=== PATIENT | male | born 1955 | race Two or more races ===

== ENCOUNTER 2020-06-20 13:29 | Inpatient (IN) | payer OTHER ==
[~2020-06-20] VITALS: Ht 172.7 cm; Wt 72.0 kg
[2020-06-20] MEDS ORDERED: NOREPINEPHRINE 8 MG/250ML KIT 250 ML IV ONE (13:46)
[2020-06-20] MEDS: NOREPINEPHRINE 8 MG/250ML KIT 250 ML IV SCH (13:52)
[2020-06-20] MEDS ORDERED: SODIUM BICARBONATE 8.4 % INJ 50ML VIAL IV ONE ×2 (14:00→14:30)
[2020-06-20] MEDS ORDERED: EPINEPHrine HCL 250 ML IV ONE (14:02)
[2020-06-20 14:08] LABS: Hematocrit 41.6 % (36.0-46.0); White Blood Cell 13.9 10^3/uL (4.4-10.8)
[2020-06-20 14:09] LABS: Hemoglobin 12.3 g/dL (12.2-16.2); Mean Corpuscular Hemoglobin 21.1 pg (28.0-32.0); Mean Corpuscular Hgb Conc. 29.5 g/dL (32.0-36.0); Mean Corpuscular Volume 71.5 fL (80.0-100.0); Platelet Count (auto) 268 10^3/uL (140-450); Red Blood Cells 5.82 10^6/uL (4.0-5.20); Red Cell Distribution Width 15.7 % (11.8-14.3)
[2020-06-20 14:20] LABS: Band Neutrophils % (manual) 0; Basophils % (manual) 0 (0.0-2.0); Blast Cells 0; Eosinophils % (manual) 0 (0-7); Metamyelocytes % 0; Myelocytes % 0; Promyelocytes % 0
[2020-06-20 14:24] LABS: Albumin 1.7 g/dL (3.4-5.0); BUN/Creatinine Ratio 15.1; Calcium 8.5 mg/dL (8.5-10.1); Potassium 4.7 mmol/L (3.5-5.1)
[2020-06-20] MEDS: EPINEPHrine HCL 250 ML IV SCH (14:24)
[2020-06-20 14:25] LABS: Lactic Acid w/Reflex 18.1 mmol/L (0.4-2.0)
[2020-06-20 14:29] LABS: Bilirubin, Total 0.5 mg/dL (0.2-1.0); Total Protein 6.7 g/dL (6.4-8.2)
[2020-06-20] MEDS ORDERED: SODIUM CHLORIDE 0.9% 1,000 ML IV ONE ×3 (14:30→15:15)
[2020-06-20] MEDS ORDERED: CALCIUM CHL 100MG/ML 1,000 MG in D5W 5% 100 ML IV ONE ×4 (14:45)
[2020-06-20] MEDS: VASOPRESSIN 50 UNITS in D5W 5% 247.5 ML IV SCH (14:55)
[2020-06-20 15:08] LABS: Lymphocytes % (manual) 33 (10.0-50.0); Monocytes % (manual) 5 (0-12); Reactive Lymphocytes 1
[2020-06-20] MEDS ORDERED: InsuLIN REG 1unit/0.01ml Soln (100units/ml) IV ONE (15:15)
[2020-06-20] MEDS ORDERED: DEXTROSE (50%) 50ML SYRG IV PRN (15:15)
[2020-06-20] MEDS ORDERED: InsuLIN R (HUMAN) 100 UNITS in SODIUM CHL 0.9% 99 ML IV SCH ×3 (15:15→23:00)
[2020-06-20] MEDS ORDERED: SODIUM BICARBONATE 50ML VIAL 150 ML in D5W 5% 1,000 ML IV ONE (15:15)
[2020-06-20 15:18] LABS: Magnesium 4.1 mg/dL (1.6-2.6)
[2020-06-20 15:24] LABS: INR 1.42 (0.9-1.15)
[2020-06-20 15:25] LABS: Partial Thromboplastin Time 86.3 sec (23.0-31.2)
[2020-06-20] MEDS: PIPERACILLIN-TAZOB 3.375GM 100 ML IV SCH ×2 (15:34→23:03)
[2020-06-20] MEDS: fentaNYL Drip 2500mCg/250mlNS 250 ML IV SCH ×2 (16:30→17:51)
[2020-06-20] MEDS: ACCU-CHEK COMFORT CURVE STRIP VI SCH ×5 (16:39→22:48)
[2020-06-20] MEDS ORDERED: MORPHINE SULF INJ 2 MG/ML SYRINGE 1ML IV PRN ×3 (16:45→18:15)
[2020-06-20] MEDS ORDERED: NITROGLYCERIN 0.4 MG SL TAB SL PRN ×2 (16:45→18:15)
[2020-06-20] MEDS ORDERED: ENOXAPARIN SOD 80 MG/0.8ML SYRINGE SC ONE (17:00)
[2020-06-20] MEDS ORDERED: ALBUMIN 25% 100 ML IV ONE ×2 (18:15→18:52)
[2020-06-20] MEDS ORDERED: REMDESIVIR PER PHARMACY 0 ML IV SCH (18:15)
[2020-06-20] MEDS ORDERED: ALBUTEROL SULF HFA 90MCG INH 200DOSE IN PRN (18:15)
[2020-06-20] MEDS ORDERED: INSULIN LANTUS (GLARGINE) 1 /0.01ml (100units/ml) SC ONE (18:15)
[2020-06-20] MEDS: D5W/SOD CHL 0.45%/KCL 20MEQ 1,000 ML IV SCH (18:15)
[2020-06-20] MEDS ORDERED: ACETAMINOPHEN 500 MG TAB PO PRN (18:15)
[2020-06-20] MEDS ORDERED: ALUM & MAG HYDROX-SIMETH LIQ(MAALOX) 30 ML PO PRN (18:15)
[2020-06-20] MEDS ORDERED: LACTATED RINGER'S 1,000 ML IV ONE (18:15)
[2020-06-20] MEDS ORDERED: POTASSIUM CHL 20MEQ/100ML 200 ML IV PRN (18:15)
[2020-06-20] MEDS ORDERED: DOCUSATE SOD 100 MG CAP PO PRN (18:15)
[2020-06-20] MEDS ORDERED: HYDROcodone-ACET 5/325MG TAB PO PRN (18:15)
[2020-06-20] MEDS ORDERED: ONDANSETRON HCL 4 MG/2 ML VIAL IV PRN (18:15)
[2020-06-20 18:44] LABS: Urine Bacteria NONE SEEN /hpf (None Seen); Urine Blood 2+ /uL (Negative); Urine Mucus FEW (None Seen); Urine Specific Gravity 1.024 (1.001-1.035); Urine Sperm PRESENT /hpf (None Seen); Urine WBC 22 /hpf (0 - 3)
[2020-06-20] MEDS: SODIUM BICARBONATE 50ML VIAL 150 ML in D5W 5% 1,000 ML IV SCH ×2 (19:10→22:37)
[2020-06-20] MEDS ORDERED: ACCU-CHEK COMFORT CURVE STRIP VI SCH (19:30)
[2020-06-20 19:54] LABS: Amphetamine Screen, Urine NEGATIVE (NEGATIVE); Barbiturate Scree,Urine NEGATIVE (NEGATIVE); Benzodiazephine Screen, Urine NEGATIVE (NEGATIVE); Cannabinoid Screen, Urine NEGATIVE (NEGATIVE); Cocaine Screen, Urine NEGATIVE (NEGATIVE); Opiate Scree,Urine NEGATIVE (NEGATIVE); Phencyclidine Screen, Urine NEGATIVE (NEGATIVE)
[2020-06-20 20:22] VITALS: BP 127/67
[2020-06-20] MEDS: MIDAZOLAM DRIP 50 mg/50mL 50 ML IV SCH (21:27)
[2020-06-20 21:33] LABS: Hemoglobin 11.6 g/dL (13.5-17.5)
[2020-06-20 21:34] LABS: Hematocrit 36.5 % (41.0-53.0); Mean Corpuscular Hemoglobin 21.2 pg (28.0-32.0); Mean Corpuscular Hgb Conc. 31.8 g/dL (32.0-36.0); Mean Corpuscular Volume 66.6 fL (80.0-100.0); Platelet Count (auto) 140 10^3/uL (140-450); Red Blood Cells 5.49 10^6/uL (4.5-5.90); Red Cell Distribution Width 15.8 % (11.8-14.3); White Blood Cell 8.4 10^3/uL (4.4-10.8)
[2020-06-20 21:37] LABS: Basophils % (manual) 0 (0.0-2.0); Blast Cells 0; Eosinophils % (manual) 0 (0-7); Promyelocytes % 0; Reactive Lymphocytes 0
[2020-06-20 21:53] LABS: Albumin 1.8 g/dL (3.4-5.0); Calcium 7.5 mg/dL (8.5-10.1); Magnesium 2.1 mg/dL (1.6-2.6)
[2020-06-20] MEDS ORDERED: BUDESONIDE (INHALATION) 180 MCG IH IN SCH (22:00)
[2020-06-20] MEDS ORDERED: FAMOTIDINE (10MG/ML) 2ML VL IV SCH (22:00)
[2020-06-20] MEDS: FAMOTIDINE (10MG/ML) 2ML VL IV SCH (22:00)
[2020-06-20] MEDS: HYDROCORTISONE SOD SUCC 100 MG/2ML INJ VIAL IV SCH (22:00)
[2020-06-20 22:04] LABS: BUN/Creatinine Ratio 21.9; Bilirubin, Total 1.8 mg/dL (0.2-1.0); CRP High Sensitivity 11.6 mg/dL (< 0.3); Total Protein 5.7 g/dL (6.4-8.2)
[2020-06-20] MEDS ORDERED: SODIUM CHLORIDE 0.9% 1,000 ML IV SCH (22:15)
[2020-06-20 22:42] LABS: Potassium 2.9 mmol/L (3.5-5.1)
[2020-06-20] MEDS: POTASSIUM CHL 20MEQ/100ML 100 ML IV SCH (23:06)
[2020-06-21] VITALS (98 sets, daily range): BP systolic 61–151; BP diastolic 40–103
[2020-06-21] MEDS: SODIUM CHLORIDE 0.9% 1,000 ML IV SCH ×4 (00:15→19:56)
[2020-06-21] MEDS: ACCU-CHEK COMFORT CURVE STRIP VI SCH ×15 (00:15→22:30)
[2020-06-21] MEDS ORDERED: POTASSIUM CHL 20MEQ/100ML 100 ML IV ONE (00:48)
[2020-06-21] MEDS: POTASSIUM CHL 20MEQ/100ML 100 ML IV SCH ×3 (00:50→10:12)
[2020-06-21] MEDS: MIDAZOLAM DRIP 50 mg/50mL 50 ML IV SCH ×2 (00:51→23:10)
[2020-06-21 00:59] LABS: Band Neutrophils % (manual) 12; Lymphocytes % (manual) 17 (10.0-50.0); Metamyelocytes % 2; Monocytes % (manual) 5 (0-12); Myelocytes % 1
[2020-06-21] MEDS: D5W/SOD CHL 0.45%/KCL 20MEQ 1,000 ML IV SCH ×3 (01:06→14:15)
[2020-06-21] MEDS: ALBUMIN 25% 100 ML IV SCH ×3 (02:00→17:47)
[2020-06-21] MEDS ORDERED: PHENYLEPHRINE IV 250 ML IV ONE (03:01)
[2020-06-21] MEDS: PHENYLEPHRINE IV 250 ML IV SCH ×3 (03:05→23:08)
[2020-06-21 04:34] LABS: Hemoglobin 11.5 g/dL (13.5-17.5); White Blood Cell 6.1 10^3/uL (4.4-10.8)
[2020-06-21 04:38] LABS: Mean Corpuscular Hemoglobin 21.4 pg (28.0-32.0); Mean Corpuscular Hgb Conc. 31.9 g/dL (32.0-36.0); Mean Corpuscular Volume 67.2 fL (80.0-100.0); Platelet Count (auto) 82 10^3/uL (140-450); Red Blood Cells 5.37 10^6/uL (4.5-5.90); Red Cell Distribution Width 15.7 % (11.8-14.3)
[2020-06-21 04:57] LABS: Calcium 6.7 mg/dL (8.5-10.1)
[2020-06-21] MEDS ORDERED: ENOXAPARIN SOD 80 MG/0.8ML SYRINGE SC SCH (05:00)
[2020-06-21 05:03] LABS: Albumin 1.7 g/dL (3.4-5.0); BUN/Creatinine Ratio 23.4; Bilirubin, Total 1.8 mg/dL (0.2-1.0); Total Protein 4.9 g/dL (6.4-8.2)
[2020-06-21] MEDS ORDERED: SODIUM BICARBONATE 8.4 % INJ 50ML VIAL IV ONE (05:34)
[2020-06-21 05:40] LABS: Potassium 2.6 mmol/L (3.5-5.1)
[2020-06-21] MEDS: SODIUM BICARBONATE 50ML VIAL 150 ML in D5W 5% 1,000 ML IV SCH ×4 (06:00→22:00)
[2020-06-21] MEDS: FUROSEMIDE 20 MG/2 ML VIAL IV SCH ×2 (06:07→18:00)
[2020-06-21] MEDS: PIPERACILLIN-TAZOB 3.375GM 100 ML IV SCH ×3 (06:08→22:00)
[2020-06-21 07:26] LABS: Basophils % (manual) 0 (0.0-2.0); Blast Cells 0; Eosinophils % (manual) 0 (0-7); Promyelocytes % 0; Reactive Lymphocytes 0
[2020-06-21 07:32] LABS: Band Neutrophils % (manual) 32; Lymphocytes % (manual) 10 (10.0-50.0); Metamyelocytes % 6; Monocytes % (manual) 4 (0-12); Myelocytes % 1
[2020-06-21] MEDS ORDERED: DexAMETHasone SOD PHOS 10MG/1ML VIAL INJ IV SCH (10:00)
[2020-06-21] MEDS ORDERED: IVERMECTIN 3 MG TAB PO ONE (10:00)
[2020-06-21] MEDS: HYDROCORTISONE SOD SUCC 100 MG/2ML INJ VIAL IV SCH ×2 (10:12→19:56)
[2020-06-21] MEDS: ZINC SULFATE 220mg CAP or TAB PO SCH (10:12)
[2020-06-21] MEDS: ASCORBIC ACID 1,000 MG TAB PO SCH (10:13)
[2020-06-21] MEDS: CHOLECALCIFEROL (VITD3) 2,000 UNIT CAP/TAB PO SCH (10:13)
[2020-06-21] MEDS: INSULIN LANTUS (GLARGINE) 1 /0.01ml (100units/ml) SC SCH (10:30)
[2020-06-21] MEDS ORDERED: VASOPRESSIN 20 UNIT/ML ONE (10:40)
[2020-06-21] MEDS ORDERED: LINEZOLID 600MG/300ML 300 ML IV SCH (13:15)
[2020-06-21] MEDS ORDERED: VANCOMYCIN PER PHARMACY 0 MG IV SCH (13:45)
[2020-06-21] MEDS: VASOPRESSIN 50 UNITS in D5W 5% 247.5 ML IV SCH ×2 (14:00→23:09)
[2020-06-21] MEDS: EPINEPHrine HCL 250 ML IV SCH (14:00)
[2020-06-21] MEDS: NOREPINEPHRINE 8 MG/250ML KIT 250 ML IV SCH ×2 (14:00→23:09)
[2020-06-21] MEDS ORDERED: VANCOMYCIN 1GM/250ML 250 ML IV ONE (15:00)
[2020-06-21] MEDS: fentaNYL Drip 2500mCg/250mlNS 250 ML IV SCH (16:23)
[2020-06-21] MEDS: FAMOTIDINE (10MG/ML) 2ML VL IV SCH (19:56)
[2020-06-22] VITALS (89 sets, daily range): BP systolic -2–184; BP diastolic -10–113
[2020-06-22] MEDS: ACCU-CHEK COMFORT CURVE STRIP VI SCH ×8 (01:30→23:26)
[2020-06-22] MEDS: SODIUM CHLORIDE 0.9% 1,000 ML IV SCH ×5 (02:26→23:26)
[2020-06-22] MEDS: SODIUM BICARBONATE 50ML VIAL 150 ML in D5W 5% 1,000 ML IV SCH ×6 (02:26→23:25)
[2020-06-22] MEDS: InsuLIN REG 1unit/0.01ml Soln (100units/ml) SC SCH ×6 (04:00→23:25)
[2020-06-22 04:13] LABS: Albumin 2.1 g/dL (3.4-5.0); Calcium 6.1 mg/dL (8.5-10.1); Potassium 4.2 mmol/L (3.5-5.1)
[2020-06-22 04:17] LABS: Bilirubin, Total 1.5 mg/dL (0.2-1.0); Total Protein 5.2 g/dL (6.4-8.2)
[2020-06-22 04:28] LABS: Basophils # (auto) 0 10 ^3/uL (0-0.2); Eosinophils # (auto) 0 10 ^3/uL (0-0.8); Eosinophils % (auto) 0.1 % (0.0-7.0); Hemoglobin 9.8 g/dL (13.5-17.5); Lymphocytes # (auto) 0.7 10 ^3/uL (0.4-5.4); Lymphocytes % (auto) 4.4 % (10.0-50.0); Mean Corpuscular Hemoglobin 20.9 pg (28.0-32.0); Mean Corpuscular Hgb Conc. 32.7 g/dL (32.0-36.0); Mean Corpuscular Volume 63.9 fL (80.0-100.0); Monocytes # (auto) 0.5 10 ^3/uL (0-1.3); Monocytes % (auto) 3.1 % (0.0-12.0); Neutrophils # (auto) 14.5 10 ^3/uL (1.6-8.6); Neutrophils % (auto) 92.4 % (37.0-80.0); Nucleated Red Blood Cells % 0.3 %; Platelet Count (auto) 27 10^3/uL (140-450); Red Blood Cells 4.69 10^6/uL (4.5-5.90); Red Cell Distribution Width 15.8 % (11.8-14.3); White Blood Cell 15.7 10^3/uL (4.4-10.8)
[2020-06-22] MEDS: PHENYLEPHRINE IV 250 ML IV SCH ×4 (05:03→20:33)
[2020-06-22] MEDS: PIPERACILLIN-TAZOB 3.375GM 100 ML IV SCH ×3 (05:17→22:15)
[2020-06-22] MEDS: FUROSEMIDE 20 MG/2 ML VIAL IV SCH ×2 (05:45→18:18)
[2020-06-22] MEDS ORDERED: ASCORBIC ACID 500 MG TAB ONE (08:32)
[2020-06-22] MEDS: CHOLECALCIFEROL (VITD3) 2,000 UNIT CAP/TAB PO SCH (09:01)
[2020-06-22] MEDS: ZINC SULFATE 220mg CAP or TAB PO SCH (09:01)
[2020-06-22] MEDS: HYDROCORTISONE SOD SUCC 100 MG/2ML INJ VIAL IV SCH ×2 (09:01→20:33)
[2020-06-22] MEDS: ASCORBIC ACID 1,000 MG TAB PO SCH (09:01)
[2020-06-22] MEDS: INSULIN LANTUS (GLARGINE) 1 /0.01ml (100units/ml) SC SCH (10:00)
[2020-06-22] MEDS ORDERED: VANCOMYCIN 1GM/250ML 250 ML IV ONE (10:00)
[2020-06-22] MEDS ORDERED: CALCIUM CHLOR(10%) 100MG/ML 10ML SYRINGE IV ONE (12:03)
[2020-06-22] MEDS ORDERED: SODIUM BICARBONATE 8.4 % INJ 50ML VIAL IV ONE (12:03)
[2020-06-22] MEDS ORDERED: EPINEPHrine HCL 1 MG/10 ML SYRG IV ONE (12:03)
[2020-06-22] MEDS: EPINEPHrine HCL 250 ML IV SCH (14:00)
[2020-06-22] MEDS ORDERED: SODIUM CHLORIDE 0.9% 1,000 ML IV ONE (14:00)
[2020-06-22] MEDS ORDERED: ceFAZolin 1GM/50ML 50 ML IV ONE (14:45)
[2020-06-22] MEDS: fentaNYL Drip 2500mCg/250mlNS 250 ML IV SCH (16:30)
[2020-06-22] MEDS: ceFAZolin 1GM/50ML 50 ML IV SCH (20:33)
[2020-06-22] MEDS: FAMOTIDINE (10MG/ML) 2ML VL IV SCH (20:33)
[2020-06-23] VITALS (97 sets, daily range): BP systolic 79–159; BP diastolic 51–103
[2020-06-23] MEDS: PHENYLEPHRINE IV 250 ML IV SCH ×5 (03:05→23:31)
[2020-06-23] MEDS: SODIUM BICARBONATE 50ML VIAL 150 ML in D5W 5% 1,000 ML IV SCH ×4 (03:41→14:00)
[2020-06-23] MEDS: InsuLIN REG 1unit/0.01ml Soln (100units/ml) SC SCH ×6 (04:00→23:36)
[2020-06-23] MEDS: ACCU-CHEK COMFORT CURVE STRIP VI SCH ×6 (04:00→23:38)
[2020-06-23] MEDS: ceFAZolin 1GM/50ML 50 ML IV SCH ×3 (05:25→20:56)
[2020-06-23] MEDS: FUROSEMIDE 20 MG/2 ML VIAL IV SCH ×2 (05:25→18:24)
[2020-06-23] MEDS: PIPERACILLIN-TAZOB 3.375GM 100 ML IV SCH ×3 (06:10→22:30)
[2020-06-23 07:29] LABS: Hematocrit 29.1 % (41.0-53.0)
[2020-06-23 07:35] LABS: Hemoglobin 9.4 g/dL (13.5-17.5); Mean Corpuscular Hgb Conc. 32.4 g/dL (32.0-36.0); Mean Corpuscular Volume 64.7 fL (80.0-100.0); Platelet Count (auto) 41 10^3/uL (140-450); Red Blood Cells 4.49 10^6/uL (4.5-5.90); Red Cell Distribution Width 15.6 % (11.8-14.3); White Blood Cell 23.7 10^3/uL (4.4-10.8)
[2020-06-23 07:44] LABS: Potassium 3.6 mmol/L (3.5-5.1)
[2020-06-23 07:59] LABS: INR 1.27 (0.9-1.15); Partial Thromboplastin Time 46.4 sec (23.0-31.2)
[2020-06-23 08:06] LABS: Basophils % (manual) 0 (0.0-2.0); Blast Cells 0; Eosinophils % (manual) 0 (0-7); Promyelocytes % 0; Reactive Lymphocytes 0
[2020-06-23 08:07] LABS: Albumin 1.6 g/dL (3.4-5.0); BUN/Creatinine Ratio 14.6; Bilirubin, Total 0.9 mg/dL (0.2-1.0); Total Protein 5.2 g/dL (6.4-8.2)
[2020-06-23] MEDS: INSULIN LANTUS (GLARGINE) 1 /0.01ml (100units/ml) SC SCH (10:00)
[2020-06-23] MEDS: CHOLECALCIFEROL (VITD3) 2,000 UNIT CAP/TAB PO SCH (10:00)
[2020-06-23] MEDS: ZINC SULFATE 220mg CAP or TAB PO SCH (10:00)
[2020-06-23] MEDS: ASCORBIC ACID 1,000 MG TAB PO SCH (10:00)
[2020-06-23] MEDS: HYDROCORTISONE SOD SUCC 100 MG/2ML INJ VIAL IV SCH ×2 (10:00→20:56)
[2020-06-23 12:07] LABS: Band Neutrophils % (manual) 58; Lymphocytes % (manual) 5 (10.0-50.0); Metamyelocytes % 12; Monocytes % (manual) 1 (0-12); Myelocytes % 7
[2020-06-23] MEDS: SODIUM CHLORIDE 0.9% 1,000 ML IV SCH (12:15)
[2020-06-23] MEDS: NOREPINEPHRINE 8 MG/250ML KIT 250 ML IV SCH (14:00)
[2020-06-23] MEDS: EPINEPHrine HCL 250 ML IV SCH (14:00)
[2020-06-23] MEDS: VASOPRESSIN 50 UNITS in D5W 5% 247.5 ML IV SCH (14:45)
[2020-06-23] MEDS: fentaNYL Drip 2500mCg/250mlNS 250 ML IV SCH (17:10)
[2020-06-23] MEDS: FAMOTIDINE (10MG/ML) 2ML VL IV SCH (20:56)
[2020-06-23] MEDS: MIDAZOLAM DRIP 50 mg/50mL 50 ML IV SCH (20:56)
[2020-06-24] VITALS (98 sets, daily range): BP systolic 71–162; BP diastolic 48–103
[2020-06-24] MEDS: DEXTROSE (50%) 50ML SYRG IV PRN ×2 (00:15→11:35)
[2020-06-24] MEDS: PHENYLEPHRINE IV 250 ML IV SCH ×3 (03:30→18:47)
[2020-06-24] MEDS: ACCU-CHEK COMFORT CURVE STRIP VI SCH ×6 (04:00→23:38)
[2020-06-24] MEDS: InsuLIN REG 1unit/0.01ml Soln (100units/ml) SC SCH ×6 (04:00→23:38)
[2020-06-24] MEDS: ceFAZolin 1GM/50ML 50 ML IV SCH ×3 (04:45→21:02)
[2020-06-24 04:50] LABS: Hemoglobin 10.5 g/dL (13.5-17.5)
[2020-06-24 04:59] LABS: Hematocrit 32.5 % (41.0-53.0); Mean Corpuscular Hemoglobin 20.7 pg (28.0-32.0); Mean Corpuscular Hgb Conc. 32.2 g/dL (32.0-36.0); Mean Corpuscular Volume 64.5 fL (80.0-100.0); Platelet Count (auto) 44 10^3/uL (140-450); Red Blood Cells 5.05 10^6/uL (4.5-5.90); Red Cell Distribution Width 15.2 % (11.8-14.3); White Blood Cell 29.7 10^3/uL (4.4-10.8)
[2020-06-24 05:01] LABS: Basophils % (manual) 0 (0.0-2.0); Blast Cells 0; Eosinophils % (manual) 0 (0-7); Promyelocytes % 0; Reactive Lymphocytes 0
[2020-06-24 05:06] LABS: Albumin 1.5 g/dL (3.4-5.0); Anion Gap 4 (5-15); Blood Urea Nitrogen 42 mg/dL (7-18); Chloride 84 mmol/L (98-107); Glucose 53 mg/dL (74-106); Potassium 3.4 mmol/L (3.5-5.1); Sodium 133 mmol/L (136-145)
[2020-06-24 05:18] LABS: Alanine Aminotransferase 50 U/L (16-61); Alkaline Phosphatase 233 U/L (45-117); Aspartate Aminotransferase 300 U/L (15-37); BUN/Creatinine Ratio 13.4; Bilirubin, Total 0.6 mg/dL (0.2-1.0); GFR African American 26 mL/min; GFR Non-African American 21 mL/min; Lactate Dehydrogenase 1722 U/L (87-241); Total Protein 5.8 g/dL (6.4-8.2)
[2020-06-24 05:24] LABS: Carbon Dioxide 45 mmol/L (21-32)
[2020-06-24] MEDS: FUROSEMIDE 20 MG/2 ML VIAL IV SCH ×2 (05:32→18:04)
[2020-06-24] MEDS: PIPERACILLIN-TAZOB 3.375GM 100 ML IV SCH ×3 (05:32→21:54)
[2020-06-24] MEDS ORDERED: POTASSIUM CHL 20MEQ/100ML 100 ML IV ONE ×2 (06:30→06:33)
[2020-06-24 07:33] LABS: Calcium < 5.0 mg/dL (8.5-10.1)
[2020-06-24 08:02] LABS: Band Neutrophils % (manual) 37; Lymphocytes % (manual) 3 (10.0-50.0); Metamyelocytes % 5; Monocytes % (manual) 6 (0-12); Myelocytes % 3
[2020-06-24] MEDS: INSULIN LANTUS (GLARGINE) 1 /0.01ml (100units/ml) SC SCH (09:11)
[2020-06-24] MEDS: CHOLECALCIFEROL (VITD3) 2,000 UNIT CAP/TAB PO SCH (10:00)
[2020-06-24] MEDS: ASCORBIC ACID 1,000 MG TAB PO SCH (10:16)
[2020-06-24] MEDS: HYDROCORTISONE SOD SUCC 100 MG/2ML INJ VIAL IV SCH ×2 (10:16→21:02)
[2020-06-24] MEDS: ZINC SULFATE 220mg CAP or TAB PO SCH (10:16)
[2020-06-24] MEDS ORDERED: D5W 5% 1,000 ML IV SCH (13:00)
[2020-06-24] MEDS ORDERED: CALCIUM GLUC 4.65meq/50ml D5AE 50 ML IV ONE ×2 (13:00→15:00)
[2020-06-24] MEDS: NOREPINEPHRINE 8 MG/250ML KIT 250 ML IV SCH (13:23)
[2020-06-24] MEDS: VASOPRESSIN 50 UNITS in D5W 5% 247.5 ML IV SCH (14:45)
[2020-06-24] MEDS: fentaNYL Drip 2500mCg/250mlNS 250 ML IV SCH (15:53)
[2020-06-24] MEDS: FAMOTIDINE (10MG/ML) 2ML VL IV SCH (21:02)
[2020-06-24] MEDS: MIDAZOLAM DRIP 50 mg/50mL 50 ML IV SCH (21:02)
[2020-06-25] VITALS (100 sets, daily range): BP systolic 80–163; BP diastolic 53–96
[2020-06-25] MEDS: PHENYLEPHRINE IV 250 ML IV SCH ×3 (01:05→16:30)
[2020-06-25] MEDS: InsuLIN REG 1unit/0.01ml Soln (100units/ml) SC SCH ×5 (04:00→20:10)
[2020-06-25] MEDS: ACCU-CHEK COMFORT CURVE STRIP VI SCH ×5 (04:00→20:00)
[2020-06-25] MEDS: ceFAZolin 1GM/50ML 50 ML IV SCH ×3 (05:00→22:00)
[2020-06-25] MEDS: PIPERACILLIN-TAZOB 3.375GM 100 ML IV SCH ×3 (06:00→22:45)
[2020-06-25] MEDS: FUROSEMIDE 20 MG/2 ML VIAL IV SCH ×2 (06:00→17:28)
[2020-06-25] MEDS: INSULIN LANTUS (GLARGINE) 1 /0.01ml (100units/ml) SC SCH (10:00)
[2020-06-25] MEDS: CHOLECALCIFEROL (VITD3) 2,000 UNIT CAP/TAB PO SCH (10:00)
[2020-06-25] MEDS: ZINC SULFATE 220mg CAP or TAB PO SCH (10:04)
[2020-06-25] MEDS: ASCORBIC ACID 1,000 MG TAB PO SCH (10:04)
[2020-06-25] MEDS: HYDROCORTISONE SOD SUCC 100 MG/2ML INJ VIAL IV SCH ×2 (10:05→22:24)
[2020-06-25 10:07] LABS: BUN/Creatinine Ratio 15.2; Potassium 3.4 mmol/L (3.5-5.1); White Blood Cell 22.1 10^3/uL (4.4-10.8)
[2020-06-25 10:10] LABS: Hematocrit 34.2 % (41.0-53.0); Mean Corpuscular Hemoglobin 20.7 pg (28.0-32.0); Mean Corpuscular Hgb Conc. 32.2 g/dL (32.0-36.0); Mean Corpuscular Volume 64.5 fL (80.0-100.0); Platelet Count (auto) 47 10^3/uL (140-450); Red Cell Distribution Width 15.4 % (11.8-14.3)
[2020-06-25 10:13] LABS: Calcium 5.1 mg/dL (8.5-10.1)
[2020-06-25 10:37] LABS: Basophils % (manual) 0 (0.0-2.0); Blast Cells 0; Eosinophils % (manual) 0 (0-7); Myelocytes % 0; Promyelocytes % 0; Reactive Lymphocytes 0
[2020-06-25] MEDS ORDERED: CALCIUM GLUC 4.65meq/50ml D5AE 50 ML IV ONE ×2 (13:00→15:00)
[2020-06-25] MEDS: POTASSIUM CHL 20MEQ/100ML 100 ML IV SCH ×2 (13:35→16:03)
[2020-06-25] MEDS: NOREPINEPHRINE 8 MG/250ML KIT 250 ML IV SCH (13:41)
[2020-06-25 13:58] LABS: Lactic Acid w/Reflex 2.4 mmol/L (0.4-2.0)
[2020-06-25 14:27] LABS: Band Neutrophils % (manual) 23; Lymphocytes % (manual) 3 (10.0-50.0); Metamyelocytes % 1; Monocytes % (manual) 4 (0-12)
[2020-06-25] MEDS: VASOPRESSIN 50 UNITS in D5W 5% 247.5 ML IV SCH (14:45)
[2020-06-25] MEDS: fentaNYL Drip 2500mCg/250mlNS 250 ML IV SCH (16:30)
[2020-06-25] MEDS: MIDAZOLAM DRIP 50 mg/50mL 50 ML IV SCH (20:53)
[2020-06-25] MEDS: FAMOTIDINE (10MG/ML) 2ML VL IV SCH (22:00)
[2020-06-26] VITALS (100 sets, daily range): BP systolic 64–164; BP diastolic 22–94
[2020-06-26] MEDS: ACCU-CHEK COMFORT CURVE STRIP VI SCH ×5 (04:00→22:00)
[2020-06-26] MEDS: FUROSEMIDE 20 MG/2 ML VIAL IV SCH ×2 (04:44→18:00)
[2020-06-26] MEDS: ceFAZolin 1GM/50ML 50 ML IV SCH ×3 (04:44→22:00)
[2020-06-26] MEDS: InsuLIN REG 1unit/0.01ml Soln (100units/ml) SC SCH ×4 (04:45→22:00)
[2020-06-26] MEDS: PIPERACILLIN-TAZOB 3.375GM 100 ML IV SCH ×3 (06:05→22:00)
[2020-06-26] MEDS: CHOLECALCIFEROL (VITD3) 2,000 UNIT CAP/TAB PO SCH (09:12)
[2020-06-26] MEDS: ZINC SULFATE 220mg CAP or TAB PO SCH (09:12)
[2020-06-26] MEDS: HYDROCORTISONE SOD SUCC 100 MG/2ML INJ VIAL IV SCH ×2 (09:12→22:00)
[2020-06-26] MEDS: ASCORBIC ACID 1,000 MG TAB PO SCH (09:13)
[2020-06-26 09:34] LABS: Albumin 1.2 g/dL (3.4-5.0); Potassium 3.2 mmol/L (3.5-5.1)
[2020-06-26 09:43] LABS: BUN/Creatinine Ratio 17.6; Bilirubin, Total 0.4 mg/dL (0.2-1.0); Total Protein 5.6 g/dL (6.4-8.2)
[2020-06-26 09:45] LABS: Calcium 5.4 mg/dL (8.5-10.1)
[2020-06-26] MEDS: INSULIN LANTUS (GLARGINE) 1 /0.01ml (100units/ml) SC SCH (09:55)
[2020-06-26] MEDS: PHENYLEPHRINE IV 250 ML IV SCH ×2 (12:15→20:35)
[2020-06-26] MEDS ORDERED: CALCIUM GLUC 4.65meq/50ml D5AE 50 ML IV ONE (12:30)
[2020-06-26] MEDS: NOREPINEPHRINE 8 MG/250ML KIT 250 ML IV SCH (14:00)
[2020-06-26] MEDS: VASOPRESSIN 50 UNITS in D5W 5% 247.5 ML IV SCH (14:45)
[2020-06-26] MEDS: POTASSIUM CHL 20MEQ/100ML 100 ML IV SCH ×2 (15:27→17:17)
[2020-06-26] MEDS: fentaNYL Drip 2500mCg/250mlNS 250 ML IV SCH (16:30)
[2020-06-26] MEDS: MIDAZOLAM DRIP 50 mg/50mL 50 ML IV SCH (21:15)
[2020-06-26] MEDS: FAMOTIDINE (10MG/ML) 2ML VL IV SCH (22:00)
[2020-06-27] VITALS (97 sets, daily range): BP systolic 74–170; BP diastolic 44–89
[2020-06-27] MEDS: ceFAZolin 1GM/50ML 50 ML IV SCH ×3 (05:59→23:14)
[2020-06-27] MEDS: FUROSEMIDE 20 MG/2 ML VIAL IV SCH (06:00)
[2020-06-27] MEDS: ACCU-CHEK COMFORT CURVE STRIP VI SCH ×4 (06:00→23:17)
[2020-06-27] MEDS: PIPERACILLIN-TAZOB 3.375GM 100 ML IV SCH ×2 (06:00→16:09)
[2020-06-27] MEDS: InsuLIN REG 1unit/0.01ml Soln (100units/ml) SC SCH ×4 (06:00→23:10)
[2020-06-27] MEDS: DEXTROSE (50%) 50ML SYRG IV PRN (06:04)
[2020-06-27 06:32] LABS: Red Blood Cells 4.73 10^6/uL (4.5-5.90)
[2020-06-27 06:34] LABS: Hematocrit 30.5 % (41.0-53.0); Mean Corpuscular Hemoglobin 21.1 pg (28.0-32.0); Mean Corpuscular Hgb Conc. 32.6 g/dL (32.0-36.0); Mean Corpuscular Volume 64.6 fL (80.0-100.0); Platelet Count (auto) 82 10^3/uL (140-450); Red Cell Distribution Width 15.5 % (11.8-14.3); White Blood Cell 16.1 10^3/uL (4.4-10.8)
[2020-06-27 06:39] LABS: BUN/Creatinine Ratio 20.1; Potassium 3.3 mmol/L (3.5-5.1)
[2020-06-27 06:43] LABS: Calcium 5.3 mg/dL (8.5-10.1)
[2020-06-27 06:53] LABS: Basophils % (manual) 0 (0.0-2.0); Blast Cells 0; Eosinophils % (manual) 0 (0-7); Myelocytes % 0; Promyelocytes % 0; Reactive Lymphocytes 0
[2020-06-27 08:44] LABS: Band Neutrophils % (manual) 2; Lymphocytes % (manual) 8 (10.0-50.0); Metamyelocytes % 1; Monocytes % (manual) 2 (0-12)
[2020-06-27] MEDS: INSULIN LANTUS (GLARGINE) 1 /0.01ml (100units/ml) SC SCH (10:00)
[2020-06-27] MEDS: HYDROCORTISONE SOD SUCC 100 MG/2ML INJ VIAL IV SCH ×2 (10:00→23:16)
[2020-06-27] MEDS: ZINC SULFATE 220mg CAP or TAB PO SCH (10:00)
[2020-06-27] MEDS: ASCORBIC ACID 1,000 MG TAB PO SCH (10:00)
[2020-06-27] MEDS: CHOLECALCIFEROL (VITD3) 2,000 UNIT CAP/TAB PO SCH (10:00)
[2020-06-27] MEDS ORDERED: CALCIUM CHL 100MG/ML 1,000 MG in D5W 5% 100 ML IV ONE (12:15)
[2020-06-27] MEDS: POTASSIUM CHL 20MEQ/100ML 100 ML IV SCH ×3 (13:39→18:15)
[2020-06-27] MEDS: NOREPINEPHRINE 8 MG/250ML KIT 250 ML IV SCH (14:00)
[2020-06-27] MEDS: MIDAZOLAM DRIP 50 mg/50mL 50 ML IV SCH (21:15)
[2020-06-27] MEDS: PHENYLEPHRINE IV 250 ML IV SCH ×2 (21:30→21:35)
[2020-06-27] MEDS: FAMOTIDINE (10MG/ML) 2ML VL IV SCH (23:15)
[2020-06-28] VITALS (66 sets, daily range): BP systolic 77–154; BP diastolic 44–85
[2020-06-28] MEDS: PHENYLEPHRINE IV 250 ML IV SCH ×2 (05:49→21:30)
[2020-06-28 05:50] LABS: Potassium 3.3 mmol/L (3.5-5.1)
[2020-06-28 06:14] LABS: Basophils # (auto) 0.1 10 ^3/uL (0-0.2); Basophils % (auto) 0.3 % (0.0-2.0); Eosinophils # (auto) 0 10 ^3/uL (0-0.8); Eosinophils % (auto) 0.1 % (0.0-7.0); Hematocrit 32.4 % (41.0-53.0); Hemoglobin 10.3 g/dL (13.5-17.5); Lymphocytes # (auto) 0.4 10 ^3/uL (0.4-5.4); Lymphocytes % (auto) 2.2 % (10.0-50.0); Mean Corpuscular Hemoglobin 20.9 pg (28.0-32.0); Mean Corpuscular Hgb Conc. 31.6 g/dL (32.0-36.0); Mean Corpuscular Volume 65.9 fL (80.0-100.0); Monocytes # (auto) 0.2 10 ^3/uL (0-1.3); Monocytes % (auto) 1.2 % (0.0-12.0); Neutrophils # (auto) 16.7 10 ^3/uL (1.6-8.6); Neutrophils % (auto) 96.2 % (37.0-80.0); Platelet Count (auto) 65 10^3/uL (140-450); Red Blood Cells 4.92 10^6/uL (4.5-5.90); Red Cell Distribution Width 15.3 % (11.8-14.3); White Blood Cell 17.3 10^3/uL (4.4-10.8)
[2020-06-28 07:47] LABS: Calcium 5.4 mg/dL (8.5-10.1)
[2020-06-28] MEDS: ACCU-CHEK COMFORT CURVE STRIP VI SCH ×4 (11:00→22:00)
[2020-06-28] MEDS: InsuLIN REG 1unit/0.01ml Soln (100units/ml) SC SCH ×2 (11:30→17:00)
[2020-06-28] MEDS: ASCORBIC ACID 1,000 MG TAB PO SCH (11:59)
[2020-06-28] MEDS: ZINC SULFATE 220mg CAP or TAB PO SCH (11:59)
[2020-06-28] MEDS: HYDROCORTISONE SOD SUCC 100 MG/2ML INJ VIAL IV SCH (12:00)
[2020-06-28] MEDS: CHOLECALCIFEROL (VITD3) 2,000 UNIT CAP/TAB PO SCH (12:01)
[2020-06-28] MEDS: INSULIN LANTUS (GLARGINE) 1 /0.01ml (100units/ml) SC SCH (12:02)
[2020-06-28] MEDS: ceFAZolin 1GM/50ML 50 ML IV SCH ×2 (16:25→18:36)
[2020-06-28] MEDS: FUROSEMIDE 20 MG/2 ML VIAL IV SCH ×2 (18:39→18:50)
[2020-06-28] MEDS: MIDAZOLAM DRIP 50 mg/50mL 50 ML IV SCH (21:15)
[2020-06-29] VITALS (74 sets, daily range): BP systolic 77–135; BP diastolic 41–74
[2020-06-29] MEDS: ceFAZolin 1GM/50ML 50 ML IV SCH ×4 (01:40→22:00)
[2020-06-29] MEDS: HYDROCORTISONE SOD SUCC 100 MG/2ML INJ VIAL IV SCH ×3 (01:41→22:00)
[2020-06-29] MEDS: FAMOTIDINE (10MG/ML) 2ML VL IV SCH ×2 (01:41→22:00)
[2020-06-29] MEDS: InsuLIN REG 1unit/0.01ml Soln (100units/ml) SC SCH ×5 (01:44→22:00)
[2020-06-29 05:10] LABS: Hemoglobin 9.8 g/dL (13.5-17.5); Monocytes # (auto) 0.3 10 ^3/uL (0-1.3); Red Cell Distribution Width 15.2 % (11.8-14.3)
[2020-06-29 05:13] LABS: Basophils # (auto) 0 10 ^3/uL (0-0.2); Basophils % (auto) 0.2 % (0.0-2.0); Eosinophils # (auto) 0.3 10 ^3/uL (0-0.8); Eosinophils % (auto) 1.5 % (0.0-7.0); Hematocrit 30.8 % (41.0-53.0); Lymphocytes # (auto) 0.8 10 ^3/uL (0.4-5.4); Lymphocytes % (auto) 3.7 % (10.0-50.0); Mean Corpuscular Hemoglobin 20.8 pg (28.0-32.0); Mean Corpuscular Hgb Conc. 31.7 g/dL (32.0-36.0); Mean Corpuscular Volume 65.5 fL (80.0-100.0); Monocytes % (auto) 1.5 % (0.0-12.0); Neutrophils % (auto) 93.1 % (37.0-80.0); Nucleated Red Blood Cells % 0.1 %; Platelet Count (auto) 116 10^3/uL (140-450); White Blood Cell 20.4 10^3/uL (4.4-10.8)
[2020-06-29 05:17] LABS: Potassium 3.1 mmol/L (3.5-5.1)
[2020-06-29 05:22] LABS: BUN/Creatinine Ratio 23.9
[2020-06-29 05:47] LABS: Calcium 5.4 mg/dL (8.5-10.1)
[2020-06-29] MEDS: FUROSEMIDE 20 MG/2 ML VIAL IV SCH (06:29)
[2020-06-29] MEDS: PHENYLEPHRINE IV 250 ML IV SCH ×2 (06:39→21:30)
[2020-06-29] MEDS: ACCU-CHEK COMFORT CURVE STRIP VI SCH ×4 (06:41→22:00)
[2020-06-29] MEDS: CHOLECALCIFEROL (VITD3) 2,000 UNIT CAP/TAB PO SCH (10:00)
[2020-06-29] MEDS: INSULIN LANTUS (GLARGINE) 1 /0.01ml (100units/ml) SC SCH (10:00)
[2020-06-29] MEDS: ASCORBIC ACID 1,000 MG TAB PO SCH (10:00)
[2020-06-29] MEDS: ZINC SULFATE 220mg CAP or TAB PO SCH (10:00)
[2020-06-29] MEDS: FUROSEMIDE 40 MG/4 ML VIAL IV SCH (19:50)
[2020-06-29] MEDS ORDERED: D5W 5% 1,000 ML IV SCH (20:30)
[2020-06-29] MEDS: DEXTROSE (50%) 50ML SYRG IV PRN (23:53)
[2020-06-30] VITALS (27 sets, daily range): BP systolic 81–149; BP diastolic 45–77
[2020-06-30 05:59] LABS: Hemoglobin 9.5 g/dL (13.5-17.5); Red Cell Distribution Width 15.5 % (11.8-14.3)
[2020-06-30 06:01] LABS: Hematocrit 30.6 % (41.0-53.0); Mean Corpuscular Hemoglobin 20.5 pg (28.0-32.0); Mean Corpuscular Hgb Conc. 30.8 g/dL (32.0-36.0); Mean Corpuscular Volume 66.5 fL (80.0-100.0); Platelet Count (auto) 107 10^3/uL (140-450); Red Blood Cells 4.61 10^6/uL (4.5-5.90); White Blood Cell 24.1 10^3/uL (4.4-10.8)
[2020-06-30] MEDS: ceFAZolin 1GM/50ML 50 ML IV SCH (06:02)
[2020-06-30] MEDS: FUROSEMIDE 40 MG/4 ML VIAL IV SCH (06:03)
[2020-06-30 06:10] LABS: Potassium 3.1 mmol/L (3.5-5.1)
[2020-06-30 06:15] LABS: Basophils % (manual) 0 (0.0-2.0); Blast Cells 0; Eosinophils % (manual) 0 (0-7); Promyelocytes % 0; Reactive Lymphocytes 0
[2020-06-30 06:45] LABS: Calcium 5.2 mg/dL (8.5-10.1)
[2020-06-30] MEDS: InsuLIN REG 1unit/0.01ml Soln (100units/ml) SC SCH ×2 (07:00→11:30)
[2020-06-30] MEDS: ACCU-CHEK COMFORT CURVE STRIP VI SCH ×2 (09:00→11:30)
[2020-06-30] MEDS: CHOLECALCIFEROL (VITD3) 2,000 UNIT CAP/TAB PO SCH (10:00)
[2020-06-30] MEDS: ZINC SULFATE 220mg CAP or TAB PO SCH (10:00)
[2020-06-30] MEDS: INSULIN LANTUS (GLARGINE) 1 /0.01ml (100units/ml) SC SCH (10:00)
[2020-06-30] MEDS: ASCORBIC ACID 1,000 MG TAB PO SCH (10:00)
[2020-06-30] MEDS: HYDROCORTISONE SOD SUCC 100 MG/2ML INJ VIAL IV SCH (10:00)
[2020-06-30 12:15] LABS: Band Neutrophils % (manual) 4; Lymphocytes % (manual) 1 (10.0-50.0); Metamyelocytes % 1; Monocytes % (manual) 2 (0-12); Myelocytes % 1
[2020-06-30] MEDS ORDERED: MORPHINE SULF INJ 2 MG/ML SYRINGE 1ML IV PRN (14:30)
[2020-06-30] MEDS ORDERED: LORazepam 2MG/ML-1ML VIAL IV PRN (14:30)
== END 2020-06-30 18:06 | DRG 720 ==
LOC: EDSEX 13:29 → ER 13:29 → EDBD 13:29 → TELE 13:30 → ICU WEST 23:50
PROVIDERS: ADMIT Hospitalist; ATTEND Internal Medicine Pulmonary Disease
PROC: 5A1955Z Respiratory Ventilation, Greater than 96 Consecutive Hours (ICD-10-PCS; principal; 2020-06-20)
PROC: 0BH17EZ Insertion of Endotracheal Airway into Trachea, Via Natural or Artificial Opening (ICD-10-PCS; 2020-06-20)
PROC: XW033E5 Introduction of Remdesivir Anti-infective into Peripheral Vein, Percutaneous Approach, New Technology Group 5 (ICD-10-PCS; 2020-06-20)
PROC: 02HV33Z Insertion of Infusion Device into Superior Vena Cava, Percutaneous Approach (ICD-10-PCS; 2020-06-20)
PROC: 5A12012 Performance of Cardiac Output, Single, Manual (ICD-10-PCS; 2020-06-20)
DX: A41.89 Other specified sepsis (principal); R65.21 Severe sepsis with septic shock; I46.9 Cardiac arrest, cause unspecified; U07.1 COVID-19; J96.01 Acute respiratory failure with hypoxia; J12.82 Pneumonia due to coronavirus disease 2019; E11.10 Type 2 diabetes mellitus with ketoacidosis without coma; N17.0 Acute kidney failure with tubular necrosis; N18.4 Chronic kidney disease, stage 4 (severe); D69.6 Thrombocytopenia, unspecified; E78.5 Hyperlipidemia, unspecified; G93.1 Anoxic brain damage, not elsewhere classified; G93.41 Metabolic encephalopathy; G93.6 Cerebral edema; K72.00 Acute and subacute hepatic failure without coma; E87.0 Hyperosmolality and hypernatremia; Z51.5 Encounter for palliative care; E11.22 Type 2 diabetes mellitus with diabetic chronic kidney disease; F17.200 Nicotine dependence, unspecified, uncomplicated; E11.649 Type 2 diabetes mellitus with hypoglycemia without coma; A49.01 Methicillin susceptible Staphylococcus aureus infection, unspecified site; I12.9 Hypertensive chronic kidney disease with stage 1 through stage 4 chronic kidney disease, or unspecified chronic kidney disease; Z66 Do not resuscitate; Z83.3 Family history of diabetes mellitus
CPT/HCPCS: 36415; 36600; 70450; 71045; 80048; 80053; 80061; 80202; 80307; 81001; 82010; 82040; 82306; 82728; 82805; 82962; 83036; 83605; 83615; 83735; 83880; 83930; 84132; 84443; 84484; 85007; 85025; 85027; 85045; 85379; 85610; 85730; 86141; 86850; 86900; 86901; 87040; 87070; 87077; 87081; 87086; 87186; 87205; 87426; 93005; 93306; 94002; 94003; 95819; 99291; G0378; J0171; J0610; J0690; J1100; J1815; J2250; J2543; J3480; J3490; J7060; P9047